=== PATIENT | male | born 1955 | race Caucasian/White ===

== ENCOUNTER 2019-08-06 15:28 | Emergency (ER) | payer OTHER ==
[2019-08-06] MEDS ORDERED: Diphtheria,Pertussis(Acell),Tetanus Vaccine 0.5 ML SDV IM ONE (15:36)
[2019-08-06] MEDS ORDERED: Bacitracin Oint 1 GM U/D Packet TOP ONE (15:40)
[2019-08-06] MEDS ORDERED: Amoxicillin/Clavulanate K 875-125 MG Tab PO ONE (15:40)
--- NOTE | 2019-08-06 15:45 | EDM.PDOC ---
ED HPI GENERAL MEDICAL PROBLEM - General Chief Complaint: Bite:Animal, Insect Stated Complaint: DOG BITE Time Seen by Provider: 08/06/19 15:35 Source of Information: Reports: Patient, RN History Limitations: Reports: Other (no old records, uncooperative) - History of Present Illness INITIAL COMMENTS - FREE TEXT/NARRATIVE: 63 yo male OR patient with some mental health issues presents after a dog bite to his R hand. He reports no allergies. His neighbor's dog bit him. At this point we don't have vaccination info on the dog. He is not openly willing to disclose this info. Onset: Today Onset Date: 08/06/19 Duration: Minutes: Location: Reports: Upper Extremity, Right Quality: Reports: Dull Severity: Mild Improves with: Reports: Rest Worsens with: Reports: Other (touching the wound only) Context: Reports: Trauma Associated Symptoms: Reports: No Other Symptoms Treatments NETWORK SYSTEMS ADMINISTRATOR: Reports: Other (see below) (none) - Related Data Allergies Allergy/AdvReac Type Severity Reaction Status Date / Time No Known Allergies Allergy Verified 08/06/19 15:43 Home Meds: Home Meds Finasteride [Proscar] 08/06/19 [History] Tamsulosin HCl [Flomax] 0.4 mg PO DAILY 08/06/19 [History] ED ROS GENERAL - Review of Systems Review Of Systems: See Below Constitutional: Reports: No Symptoms Skin: Reports: Wound (dorsum of R hand) Neurological: Reports: No Symptoms ED EXAM, SKIN/RASH Exam: See Below Exam Limited By: No Limitations General Appearance: Alert, WD/WN, No Apparent Distress Extremities: Normal Range of Motion, No Pedal Edema. No: Non-Tender, Pedal Edema, Limited Range of Motion, Increased Warmth, Redness Neurological: Alert, Oriented, CN II-XII Intact, Normal Cognition, No Motor/ Sensory Deficits Psychiatric: Normal Affect, Normal Mood, Other (has unusual ideations that strongly suggest mental illness(VA verifies this is not new)) Skin: Warm, Dry, Normal Color, No Rash, Wound/Incision Location, Skin: Upper Extremity, Right Characteristics: Other (slightly irregular and about 2.75 cm in length. ) Associated features: Tenderness ED SKIN PROCEDURES - Laceration/Wound Repair Right Dorsal Hand Appearance: Subcutaneous, Irregular, Mildly Contaminated Distal NVT: Neuro & Vascular Intact Anesthetic Type: Local Local Anesthesia - Lidocaine (Xylocaine): 1% Plain Local Anesthetic Volume: 2cc Skin Prep: Chlorhexidine (Hibiciens), Other Exploration/Debridement/Repair: Wound Explored Closed with: Sutures Lac/Wound length In cm: 2.5 Suture Size: 5-0 Suture Type: Nylon, Simple (x 2), Mattress (x1) Drain Placement: No Sterile Dressing Applied: Nurse Tetanus Status Addressed: Yes Complications: No Course - Vital Signs Last Recorded V/S: Last Vital Signs Temp 36.7 C 08/06/19 15:45 Pulse 85 08/06/19 15:45 Resp 20 08/06/19 15:45 BP 147/102 H 08/06/19 15:45 Pulse Ox 96 08/06/19 15:45 - Orders/Labs/Meds Orders: Active Orders 24 hr Category Date Time Status Vaccines to be Administered [RC] PER UNIT ROUTINE Care 08/06/19 15:36 Active Meds: Medications Discontinued Medications Generic Name Dose Route Start Last Admin Trade Name Freq PRN Reason Stop Dose Admin Amoxicillin/Clavulanate Potassium 1 tab 08/06/19 15:40 08/06/19 16:19 Augmentin 875 Mg/125 Mg PO 08/06/19 15:41 1 tab ONETIME ONE Administration Bacitracin 1 dose 08/06/19 15:40 08/06/19 16:19 Bacitracin Oint 1 Gm TOP 08/06/19 15:41 1 dose ONETIME ONE Administration Diphtheria/Tetanus/Acell Pertussis 0.5 ml 08/06/19 15:36 08/06/19 16:19 Adacel IM 08/06/19 15:37 0.5 ml .ONCE ONE Administration Lidocaine HCl 5 ml 08/06/19 15:41 08/06/19 16:18 Xylocaine-Mpf 1% INJECT 08/06/19 15:42 5 ml ONETIME ONE Administration Departure - Departure Time of Disposition: 17:12 Disposition: Home, Self-Care 01 Condition: Fair Clinical Impression: Dog bite of hand Qualifiers: Encounter type: initial encounter Laterality: right Qualified Code(s): S61.451A - Open bite of right hand, initial encounter; W54.0XXA - Bitten by dog , initial encounter - Discharge Information *PRESCRIPTION DRUG MONITORING PROGRAM REVIEWED*: No *COPY OF PRESCRIPTION DRUG MONITORING REPORT IN PATIENT RADHA: No Instructions: Animal Bite, Adult, [id number] Referrals: PCP,None [Primary Care Provider] - Forms: ED Department Discharge Additional Instructions: Clean wound twice daily with soap and water. Dry. Apply antibiotic ointment and a new dressing. Take Augmentin every 12 hrs with food for a total of 6 doses. Recheck of wound any where you can get in on Sunday. Keep wound clean. Call us back with the dog that bit you's rabies status. Sepsis Event Note - Focused Exam Vital Signs: Vital Signs Temp Pulse Resp BP Pulse Ox 08/06/19 15:45 36.7 C 85 20 147/102 H 96 Date Exam was Performed: 08/06/19 Time Exam was Performed: 17:12 - My Orders Last 24 Hours: My Active Orders 08/06/19 15:36 Vaccines to be Administered [RC] PER UNIT ROUTINE - Assessment/Plan Last 24 Hours: My Active Orders 08/06/19 15:36 Vaccines to be Administered [RC] PER UNIT ROUTINE
== END 2019-08-06 17:25 | disposition home or self-care (01) ==
LOC: JP.ED 15:28
DX: S61.451A Open bite of right hand, initial encounter (principal); Z23 Encounter for immunization; Z79.899 Other long term (current) drug therapy; W54.0XXA Bitten by dog, initial encounter
CPT/HCPCS: 12001; 90471; 90715; 99283; A9270; J2001

== ENCOUNTER 2021-04-14 15:23 | Emergency (ER) | payer OTHER ==
[2021-04-14] MEDS ORDERED: Bupivacaine 0.5%/EPINEPHrine 1:200,000 1.8 ML Cartridge INJECT ONE (16:12)
== END 2021-04-14 16:55 | disposition home or self-care (01) ==
LOC: JP.ED 15:23
DX: K04.7 Periapical abscess without sinus (principal); E78.00 Pure hypercholesterolemia, unspecified; Z79.899 Other long term (current) drug therapy
CPT/HCPCS: 99282; J3490; 99283

== ENCOUNTER 2021-12-08 09:16 | Emergency (ER) | payer OTHER ==
[2021-12-08] MEDS ORDERED: Sodium Chloride 0.9% 1,000 ML IV STA (10:43)
[2021-12-08] MEDS ORDERED: Sodium Chloride 0.9% 10 ML Syringe FLUSH PRN ×2 (10:43→11:29)
[2021-12-08] MEDS ORDERED: Ondansetron 4 MG/2 ML SDV IVPUSH ONE (10:44)
[2021-12-08] MEDS ORDERED: fentaNYL 100 MCG/2 ML SDV IVPUSH ONE (10:44)
[2021-12-08 11:21] LABS: ESTIMATED GFR 93 mL/min (>60); TROPONIN I HIGH SENSITIVITY 14.5 pg/mL (<=60.3)
[2021-12-08] MEDS ORDERED: Sodium Chloride 0.9% 50 ML IV ONE (11:29)
[2021-12-08] MEDS ORDERED: Iopamidol 612 MG/ML 100 ML Bottle IV PRN (11:29)
[2021-12-08] MEDS ORDERED: HYDROmorphone 0.5 MG/0.5 ML Syringe IVPUSH ONE (14:06)
[2021-12-08] MEDS ORDERED: Ketorolac 30 MG/ML SDV IVPUSH ONE (14:29)
[2021-12-08] MEDS ORDERED: Magnesium Citrate Solution 296 ML Bottle PO ONE (14:30)
[2021-12-08] MEDS ORDERED: Polyethylene Glycol 3350 Powder 238 GM Bot PO ONE (17:27)
== END 2021-12-08 18:07 | disposition home or self-care (01) ==
LOC: JP.ED 09:16 → EEVIPCON 09:16 → JP.ED 18:07
DX: K59.04 Chronic idiopathic constipation (principal); K59.01 Slow transit constipation
CPT/HCPCS: 36415; 74177; 74177-26; 80053; 81001; 83605; 83690; 84484; 85025; 96361; 96374; 96375; 99284; 99284-25; A9270-GY; J1885; J2405; J3010; J3490; J7030; Q9967

== ENCOUNTER 2022-03-19 15:21 | Emergency (ER) | payer OTHER ==
[2022-03-19 16:19] LABS: CORONAVIRUS COVID-19 NAA POSITIVE (NEGATIVE)
[2022-03-19] MEDS ORDERED: Ketorolac 30 MG/ML SDV IM ONE (16:37)
== END 2022-03-19 16:51 | disposition home or self-care (01) ==
LOC: JP.ED 15:21
DX: U07.1 COVID-19 (principal)
CPT/HCPCS: 0241U; 96372; 99283; J1885